=== PATIENT | female | born 1970 | race Caucasian/White ===

== ENCOUNTER 2021-06-19 10:59 | Outpatient (REF) | payer BC, SELFPAY ==
[2021-06-21 11:59] LABS: COVID-19 RT-PCR UVMMC Result Negative (Negative)
== END 2021-06-19 11:00 | disposition home or self-care (01) ==
LOC: LBN 10:59
PROVIDERS: PCP Physician Assistant; Visit Provider Physician Assistant
DX: Z20.822 Contact with and (suspected) exposure to COVID-19 (principal)
CPT/HCPCS: U0003

== ENCOUNTER 2021-06-28 15:58 | Outpatient (REF) | payer BC, SELFPAY ==
[2021-06-30 12:29] LABS: COVID-19 RT-PCR UVMMC Result Negative (Negative)
== END 2021-06-28 15:59 | disposition home or self-care (01) ==
LOC: LBN 15:58
PROVIDERS: Visit Provider Physician Assistant Medical
DX: Z20.822 Contact with and (suspected) exposure to COVID-19 (principal); J32.9 Chronic sinusitis, unspecified
CPT/HCPCS: U0003

== ENCOUNTER 2021-07-18 21:34 | Outpatient (REF) | payer BC, SELFPAY ==
[2021-07-20 11:34] LABS: COVID-19 RT-PCR UVMMC Result Positive (Negative)
== END 2021-07-18 21:35 | disposition home or self-care (01) ==
LOC: LBN 21:34
PROVIDERS: Visit Provider Nurse Practitioner Family
DX: Z20.822 Contact with and (suspected) exposure to COVID-19 (principal)
CPT/HCPCS: U0003

== ENCOUNTER 2023-08-06 14:38 | Outpatient (REF) | payer BC, SELFPAY | END 2023-08-06 14:39 | disposition home or self-care (01) | LOC: LBN 14:38 | PROVIDERS: Visit Provider Physician Assistant | DX: J02.9 Acute pharyngitis, unspecified (principal) | CPT/HCPCS: 87081 ==